=== PATIENT | female | born 1995 | race American Indian/Alaskan Native ===

== ENCOUNTER 2018-05-30 01:49 | Emergency (ER) | payer SELFPAY ==
[2018-05-30 02:09] VITALS: BP 125/78
--- NOTE | 2018-05-30 03:42 | Emergency Department Report ---
- General Chief Complaint: Upper Respiratory Infection Stated Complaint: SNEEZING AND COUGHING Time Seen by Provider: 05/30/18 02:43 Source: patient Mode of arrival: Ambulatory Limitations: No Limitations - History of Present Illness MD Complaint: cough, rhinorrhea, nasal congestion -: days(s) (1) Severity: mild Consistency: constant Improves With: nothing Worsens With: nothing Context: sick contacts (daughter sick) Associated Symptoms: rhinorrhea, nasal congestion, cough, other (has fever blister developing on lip). denies: nausea, vomiting, diarrhea, epistaxis, hoarseness, ear pain - Related Data Previous Rx's Medication Instructions Recorded Last Taken Type Acyclovir [Zovirax Tab] 800 mg PO 5XD #40 tablet 05/30/18 Unknown Rx Cetirizine HCl/Pseudoephedrine 1 each PO DAILY #7 tab.er.12h 05/30/18 Unknown Rx [Zyrtec-D Tablet] Olopatadine HCl [Pataday 0.2%] 1 drop OP QDAY #1 bottle 05/30/18 Unknown Rx Allergies Allergy/AdvReac Type Severity Reaction Status Date / Time doxycycline Allergy Unknown Verified 05/30/18 02:06 ED Review of Systems ROS: Stated complaint: SNEEZING AND COUGHING Other details as noted in HPI Constitutional: denies: chills, fever Eyes: denies: eye pain, eye discharge, vision change ENT: denies: ear pain, throat pain Respiratory: cough. denies: shortness of breath, wheezing Cardiovascular: denies: chest pain, palpitations Endocrine: no symptoms reported Gastrointestinal: denies: abdominal pain, nausea, diarrhea Genitourinary: denies: urgency, dysuria, discharge Musculoskeletal: denies: back pain, joint swelling, arthralgia Skin: denies: rash, lesions Neurological: denies: headache, weakness, paresthesias Psychiatric: denies: anxiety, depression Hematological/Lymphatic: denies: easy bleeding, easy bruising ED Past Medical Hx - Past Medical History Previous Medical History?: No - Surgical History Past Surgical History?: Yes Additional Surgical History: - Social History Smoking Status: Current Every Day Smoker Substance Use Type: Alcohol - Medications Home Medications: Home Medications Medication Instructions Recorded Confirmed Last Taken Type Acyclovir [Zovirax Tab] 800 mg PO 5XD #40 tablet 05/30/18 Unknown Rx Cetirizine HCl/Pseudoephedrine 1 each PO DAILY #7 tab.er.12h 05/30/18 Unknown Rx [Zyrtec-D Tablet] Olopatadine HCl [Pataday 0.2%] 1 drop OP QDAY #1 bottle 05/30/18 Unknown Rx ED Physical Exam - General Limitations: No Limitations General appearance: alert, in no apparent distress - Head Head exam: Present: atraumatic, normocephalic - Eye Eye exam: Present: normal appearance, PERRL, EOMI, conjunctival injection Pupils: Present: normal accommodation - ENT ENT exam: Present: normal exam, mucous membranes moist, other (nasal congestion bilaterally. There is some some ulcerative lesions to the tip of the nose and to the lip region. Airway is patent. Tongue and uvula are midline) - Neck Neck exam: Present: normal inspection, full ROM - Respiratory Respiratory exam: Present: normal lung sounds bilaterally. Absent: respiratory distress, wheezes, rales, chest wall tenderness, accessory muscle use, decreased breath sounds, prolonged expiratory - Cardiovascular Cardiovascular Exam: Present: regular rate, normal rhythm. Absent: systolic murmur, diastolic murmur, rubs, gallop - GI/Abdominal GI/Abdominal exam: Present: soft, normal bowel sounds. Absent: distended, tenderness, guarding, hyperactive bowel sounds, hypoactive bowel sounds, organomegaly, mass, bruit, pulsatile mass - Extremities Exam Extremities exam: Present: normal inspection - Back Exam Back exam: Present: normal inspection. Absent: tenderness, CVA tenderness (R), CVA tenderness (L) - Neurological Exam Neurological exam: Present: alert, oriented X3, CN II-XII intact - Psychiatric Psychiatric exam: Present: normal affect, normal mood - Skin Skin exam: Present: warm, dry, intact, normal color. Absent: rash ED Course Vital Signs 05/30/18 02:07 Temperature 98.7 F Pulse Rate 80 Respiratory 18 Rate Blood Pressure 125/78 O2 Sat by Pulse 99 Oximetry Critical care attestation.: If time is entered above; I have spent that time in minutes in the direct care of this critically ill patient, excluding procedure time. ED Disposition Clinical Impression: Cough, URI (upper respiratory infection), Fever blister, Irritation of both eyes Disposition: TO HOME OR SELFCARE Is pt being admited?: No Does the pt Need Aspirin: No Condition: Stable Instructions: Upper Respiratory Infection (ED), Canker Sores (ED) Referrals: LANCE BLISS MD [Primary Care Provider] - 3-5 Days
== END 2018-05-30 03:50 | disposition home or self-care (01) ==
LOC: ED 01:49
DX: J06.9 Acute upper respiratory infection, unspecified (principal); H57.89 Other specified disorders of eye and adnexa; F17.200 Nicotine dependence, unspecified, uncomplicated; Z88.1 Allergy status to other antibiotic agents
CPT/HCPCS: 99282

== ENCOUNTER 2020-11-20 16:55 | Emergency (ER) | payer MEDICAID ==
[2020-11-20 18:05] VITALS: BP 128/73
[2020-11-20 19:04] LABS: Alanine Aminotransferase 9 units/L (7-56); Albumin 3.8 g/dL (3.9-5); Blood Urea Nitrogen 13 mg/dL (7-17); Calcium 8.8 mg/dL (8.4-10.2); Hemolysis Index 11
[2020-11-20 19:08] LABS: Basophils % (Auto) 0.1 % (0.0-1.8); Eosinophils # (Auto) 0.2 K/mm3 (0.0-0.4); Eosinophils % (Auto) 2.1 % (0.0-4.3); Hematocrit 34.5 % (30.3-42.9); Hemoglobin 11.5 gm/dl (10.1-14.3); Lymphocytes # (Auto) 2.3 K/mm3 (1.2-5.4); Lymphocytes % (Auto) 23.2 % (13.4-35.0); Mean Corpuscular HGB Conc 33 % (30-34); Mean Corpuscular Volume 87 fl (79-97); Monocytes # (Auto) 0.7 K/mm3 (0.0-0.8); Monocytes % (Auto) 6.5 % (0.0-7.3); Platelet Count 341 K/mm3 (140-440); Red Blood Count 3.95 M/mm3 (3.65-5.03); Red Cell Distribution Width 13.9 % (13.2-15.2)
[2020-11-20 19:14] LABS: Bilirubin,Urine NEG (Negative); Blood,Urine NEG (Negative); Color,Urine Yellow (Yellow); Mucus,Urine 1+ /HPF; Urobilinogen,Urine < 2.0 mg/dL (<2.0); WBC,Urine < 1.0 /HPF (0.0-6.0)
[2020-11-20 19:17] LABS: BUN/Creatinine Ratio 19
[2020-11-20 19:17] LABS: HCG Qualitative,Urine Positive (Negative)
--- NOTE | 2020-11-20 21:36 | Ultrasound Report ---
Transabdominal and transvaginal OB ultrasound INDICATION: Bleeding FINDINGS: Right ovary measures 3.7 x 2.3 x 3.0 cm. Left ovary measures 3.0 x 1.3 x 2.7 cm. Right ovar florencio cyst measures 1.0 x 1.4 x 1.9 cm. No intrauterine is identified. Cystic area seen in th e right ovary. Small calcific in the uterus measures 1.0 x 0.9 x 1.3 cm. IMPRESSION: 1. No intrauterine is identified. No gestational sac or yolk sac. 2. Cystic area in the right adnexa suggest right adnexal cyst. Clinical correlation with quantitative beta hCG and clinical exam. Signer Name: Suman Nelson MD Signed: 11/20/2020 9:32 PM Workstation Name: [id number]
== END 2020-11-20 22:00 | disposition left against medical advice (07) ==
LOC: ED 16:55
DX: Z00.00 Encounter for general adult medical examination without abnormal findings (principal); Z53.21 Procedure and treatment not carried out due to patient leaving prior to being seen by health care provider
CPT/HCPCS: 36415; 76801; 76817; 80053; 81001; 81025; 84702; 85025; 86900; 86901